=== PATIENT | female | born 1940 | race Caucasian/White ===

== ENCOUNTER 2017-10-14 09:50 | Emergency (ER) | payer MEDICARE ==
[2017-10-14 10:25] LABS: #Eosinphils 0.1 thou/uL (0.0-0.7); #Lymphocytes 1.4 thou/uL (1.20-3.40); #Monocytes 0.5 thou/uL (0.11-0.59); #Neutrophils 5.7 thou/uL (1.40-6.50); %Basophils 0.6 % (0.0-1.0); %Eosinophils 1.8 % (0.0-10.0); %Lymphocytes 18.1 % (21.0-51.0); %Monocytes 6.3 % (0.0-10.0); %Neutrophils 73.2 % (42.0-75.0); Hemoglobin 13.9 g/dL (12.0-16.0); Mean Corpuscular HGB CONC 31.9 g/dL (32.0-36.0); Mean Corpuscular Hemoglobin 28.8 pg (27.0-31.0); Mean Corpuscular Volume 90.4 fl (81.0-99.0); Mean Platelet Volume 8.4 fL (7.4-10.4); Platelet Count 328 thou/uL (130-400); RBC Distribution Width 13.6 % (11.5-14.5); Red Blood Cell (RBC) Count 4.82 mill/uL (4.20-5.40); White Blood Cell (WBC) Count 7.7 thou/uL (4.8-10.8)
--- NOTE | 2017-10-14 10:30 | RAD ---
PORTABLE AP CHEST RADIOGRAPH: Date: 10-14-17 History: Altered mental status. Worsening confusion this morning. Headache. Comparison: None available. FINDINGS: Cardiac silhouette is magnified by projection. Pulmonary vasculature is within normal limits. There i s symmetrical biapical pleural thickening. Lungs are otherwise clear. Vascular calcification is seen in the aorta. There is bilateral acromioclavicular joint osteoarthritis with right glenohumeral osteo arthropathy. Degenerative changes are noted in the spine. IMPRESSION: No acute cardiopulmonary process. POS: [facility]
[2017-10-14 10:40] LABS: ALT (SGPT) 12 U/L (8-55); AST (SGOT) 21 U/L (5-34); Albumin 4.2 g/dL (3.4-4.8); Alkaline Phosphatase 76 U/L (40-150); Anion Gap 15 mmol/L (10-20); BUN (Urea Nitrogen) 18 mg/dL (9.8-20.1); Bilirubin, Total 0.4 mg/dL (0.2-1.2); CK (CPK) 41 U/L (29-168); Calc. Creatinine Clearance 0 mL/min (70-130); Calcium 10.1 mg/dL (7.8-10.44); Carbon Dioxide 25 mmol/L (23-31); Chloride 96 mmol/L (98-107); Estimated GFR-MDRD 69; Globulin 3.1 g/dL (2.4-3.5); Glucose 83 mg/dL (83-110); Protein, Total 7.3 g/dL (6.0-8.3); Sodium 132 mmol/L (136-145)
[2017-10-14 10:43] LABS: CKMB 1.6 ng/mL (0-6.6); Troponin I Less than 0.010 ng/mL (< 0.028)
--- NOTE | 2017-10-14 12:27 | CT ---
NONCONTRAST HEAD CT: Date: 10/14/17 HISTORY: Worsening confusion and headache x1 week. COMPARISON: None. TECHNIQUE: A noncontrast head CT is performed from the skull base to the skull vertex. FINDINGS: No parenchymal hemorrhage or extra-axial hematoma. No midline shift. Basilar cisterns are patent. Kp tricular system is greater than expected for overall degree of brain volume loss. Correlate for hydro cephalus. Chronic small vessel ischemic changes versus transependymal flow of CSF noted. Adequate aer ation of the sinuses and mastoid air cells. Calvarium is intact. IMPRESSION: Prominence of the ventricular system, worrisome for a hydrocephalus. Noncommunicating hydrocephalus i s suspected. Better interrogation with brain MRI is recommended. POS: [facility]
== END 2017-10-14 12:55 | disposition home or self-care (01) ==
LOC: ERS 09:50
DX: E11.649 Type 2 diabetes mellitus with hypoglycemia without coma (principal); E78.5 Hyperlipidemia, unspecified; I10 Essential (primary) hypertension; Z86.73 Personal history of transient ischemic attack (TIA), and cerebral infarction without residual deficits; Z87.891 Personal history of nicotine dependence; Z79.02 Long term (current) use of antithrombotics/antiplatelets; Z79.4 Long term (current) use of insulin; Z79.899 Other long term (current) drug therapy
CPT/HCPCS: 36415; 36416; 70450; 71045; 80053; 82553; 84484; 85025; 93005; 94760

== ENCOUNTER 2017-11-08 18:00 | Outpatient (CLI) | payer MEDICARE ==
--- NOTE | 2017-11-08 13:14 | MRI ---
MRI BRAIN WITHOUT CONTRAST: 11/08/2017 HISTORY: Ventriculomegaly. Altered mental status. COMPARISON: None. TECHNIQUE: Multiplanar, multisequence imaging of the brain is obtained without contrast. FINDINGS: The diffusion-weighted imaging demonstrates no evidence for acute infarction. The axial gradient ech o imaging demonstrates no evidence for intracranial hemorrhage. The imaged paranasal sinuses/mastoid air cells demonstrate normal signal intensity. Regional bone ma rrow signal intensity is within normal limits. There is degenerative change involving the atlantoaxi al interspace. The imaged paranasal sinuses/mastoid air cells are grossly unremarkable. Arterial flow voids at the axial level of the skull base appear grossly unremarkable on T2 weighted imaging. There is diffuse ventricular enlargement involving the third ventricle and lateral ventricles. The f ourth ventricle is mildly prominent as well. No evidence for a tectal mass. Axial gradient echo imaging demonstrates no evidence for intracranial hemorrhage. No evidence for ac dori infarction on diffusion weighted imaging. IMPRESSION: Ventricular enlargement, most prominently affecting the third ventricle and lateral ventricles. Ther e is no tactile mass or definite evidence for tectal mass or definite evidence for aqueductal stenosi s on this exam. These findings may represent normal pressure hydrocephalus. Clinical correlation is essential. No intracranial hemorrhage or evidence of acute infarction. POS: [facility]
== END 2017-11-08 18:01 | disposition home or self-care (01) ==
LOC: MRI 18:00
PROVIDERS: ATTEND Internal Medicine Geriatric Medicine
DX: G31.9 Degenerative disease of nervous system, unspecified (principal)
CPT/HCPCS: 70551

== ENCOUNTER 2018-02-21 10:11 | Outpatient (CLI) | payer MEDICARE | END 2018-02-21 10:12 | disposition home or self-care (01) | LOC: BICMAMMO 10:11 | PROVIDERS: ATTEND Internal Medicine Geriatric Medicine | DX: Z12.31 Encounter for screening mammogram for malignant neoplasm of breast (principal) | CPT/HCPCS: 77063; 77067 ==

== ENCOUNTER 2018-04-06 12:56 | Outpatient (CLI) | payer MEDICARE | END 2018-04-06 12:57 | disposition home or self-care (01) | LOC: MWLC DTY 12:56 | PROVIDERS: ATTEND Internal Medicine Geriatric Medicine | DX: E11.65 Type 2 diabetes mellitus with hyperglycemia (principal) | CPT/HCPCS: 97802 ==

== ENCOUNTER 2018-08-27 12:08 | Observation (INO) | payer MEDICARE ==
--- NOTE | 2018-08-27 14:21 | RAD ---
RIGHT HIP 2 VIEWS: HISTORY: Fall with injury to hip. FINDINGS: No evidence of fracture. Very mild degenerative change. IMPRESSION: No acute fracture. POS: [facility]
[2018-08-27] MEDS ORDERED: Fentanyl 100 MCG/2 ML VIAL ONE ×2 (14:54→18:40)
[2018-08-27 15:19] LABS: #Eosinphils 0.2 thou/uL (0.0-0.7); #Lymphocytes 1.1 thou/uL (1.20-3.40); #Monocytes 0.7 thou/uL (0.11-0.59); #Neutrophils 10.8 thou/uL (1.40-6.50); %Basophils 0.3 % (0.0-1.0); %Eosinophils 1.4 % (0.0-10.0); %Lymphocytes 8.7 % (21.0-51.0); %Monocytes 5.8 % (0.0-10.0); %Neutrophils 83.8 % (42.0-75.0); Hemoglobin 13.6 g/dL (12.0-16.0); Mean Corpuscular HGB CONC 33.5 g/dL (32.0-36.0); Mean Corpuscular Hemoglobin 29.4 pg (27.0-31.0); Mean Corpuscular Volume 87.7 fL (78.0-98.0); Mean Platelet Volume 9.2 fL (7.4-10.4); Platelet Count 286 thou/uL (130-400); RBC Distribution Width 13.8 % (11.5-14.5); Red Blood Cell (RBC) Count 4.63 mill/uL (4.20-5.40); White Blood Cell (WBC) Count 12.9 thou/uL (4.8-10.8)
[2018-08-27 15:27] LABS: Prothrombin Time 12.9 SEC (12.0-14.7)
--- NOTE | 2018-08-27 15:41 | RAD ---
PORTABLE UPRIGHT FRONTAL CHEST RADIOGRAPH: DTE: 08/27/2018. COMPARISON: 10/14/2017. HISTORY: Fall, trauma, pain, weakness. FINDINGS: There is atherosclerotic calcification of the aortic arch. There is mild increased linear interstitial density, stable. There is no pneumothorax, pleural fluid , focal consolidation, or alveolar edema. IMPRESSION: Stable appearance of the chest - no acute findings. POS: [facility]
--- NOTE | 2018-08-27 15:51 | RAD ---
FRONTAL RADIOGRAPH PELVIS: DATE: 08/27/2018. HISTORY: Injury, trauma, pain. FINDINGS: Pelvic ring appears intact. No widening of sacroiliac joints or pubic symphysis. Femoral heads proj ect normally over their respective acetabulum. IMPRESSION: No displaced fracture. POS: [facility]
[2018-08-27 15:54] LABS: ALT (SGPT) 11 U/L (8-55); AST (SGOT) 15 U/L (5-34); Albumin 3.9 g/dL (3.4-4.8); Alkaline Phosphatase 89 U/L (40-150); Anion Gap 18 mmol/L (10-20); BUN (Urea Nitrogen) 16 mg/dL (9.8-20.1); Bilirubin, Total 0.6 mg/dL (0.2-1.2); CK (CPK) 41 U/L (29-168); Calc. Creatinine Clearance 0 mL/min (70-130); Calcium 9.8 mg/dL (7.8-10.44); Carbon Dioxide 23 mmol/L (23-31); Chloride 95 mmol/L (98-107); Estimated GFR-MDRD 58; Glucose 262 mg/dL (83-110); Potassium 4.3 mmol/L (3.5-5.1); Protein, Total 6.9 g/dL (6.0-8.3); Sodium 132 mmol/L (136-145)
[2018-08-27 16:06] LABS: Bilirubin Negative (Negative); Blood, Urine Trace (Negative); Clarity CLOUDY (Clear); Glucose, Urine (Dipstick) >=1000 mg/dL (Negative); Leukocyte Large (Negative); Nitrite Positive (Negative); Protein, Urine (Dipstick) Negative (Neg-Trace)
[2018-08-27 16:11] LABS: Bacteria/HPF 4+ HPF (None Seen); Hyaline Casts/LPF 0-3 HYALINE CAST LPF (0-3 Hyaline); Pathc Cast-AUWi Flag 0.14 (0-2.49); Squamous Epithelial None Seen HPF (0-3)
[2018-08-27] MEDS ORDERED: cefTRIAXone\\ROCEPHIN 2 GM VIAL ONE (17:28)
[2018-08-27] MEDS ORDERED: Ondansetron PF 4 MG/2 ML Vial ONE (17:28)
[2018-08-28] MEDS ORDERED: Dextrose 5% in Water 1,000 ML IV PRN (09:37)
[2018-08-28] MEDS ORDERED: Dextrose 50% Abboject 50 ML SYRINGE IVP PRN (09:37)
[2018-08-28] MEDS ORDERED: Oxybutynin ER 5 MG TAB PO SCH (09:45)
[2018-08-28] MEDS ORDERED: Citalopram 20 MG TAB PO SCH ×2 (09:45)
[2018-08-28] MEDS ORDERED: Clopidogrel Bisulfate 75 MG TAB PO SCH (09:45)
[2018-08-28] MEDS ORDERED: Aspirin 81 mg Enteric Coated Tablet PO SCH (09:45)
[2018-08-28] MEDS ORDERED: Insulin Glargine 36 UNITS in Pre-Filled Syringe 1 EACH SC SCH (09:45)
--- NOTE | 2018-08-28 10:21 | RAD ---
LUMBAR SPINE 3 VIEWS: HISTORY: Fall with pain and injury to low back. FINDINGS: The lumbar vertebrae maintain height. No evidence of acute compression injury. Moderate degenerativ e changes are noted. There is a mild anterolisthesis at L3-4. Here is loss of disk space at L4-5 an d L5-S1. Anterior osteophytes and facet hypertrophy noted. IMPRESSION: Degenerative changes of lumbar spine. No evidence of acute fracture or compression. POS: [facility]
[2018-08-28] MEDS: Sodium Chloride 0.9% 1,000 ML IV SCH (10:37)
[2018-08-28] MEDS ORDERED: HumaLOG 300 UNITS/3 ML VIAL ONE (10:42)
[2018-08-28] MEDS: HumaLOG 300 UNITS/3 ML VIAL SC PRN ×2 (10:43→16:58)
[2018-08-28] MEDS ORDERED: Enoxaparin Sodium 40 MG/0.4 ML SYRINGE ONE (11:26)
[2018-08-28] MEDS: Losartan/Hydrochlorothiazide 100 mg/25 mg Tablet PO SCH (11:33)
[2018-08-28] MEDS: metFORMIN 500 MG TAB PO SCH (11:35)
[2018-08-28] MEDS: Enoxaparin Sodium 40 MG/0.4 ML SYRINGE SC SCH ×2 (11:36→11:37)
--- NOTE | 2018-08-28 12:04 | HP ---
PRIMARY CARE PROVIDER: Fatoumata George MD CHIEF COMPLAINT: Fall. HISTORY OF PRESENT ILLNESS: Ms. Rubio is a pleasant 78-year-old lady, who was seen at [facility] on 08/28/2018. She lives at [facility], with assisted living. She uses a walker to ambulate. History was provided by her. Collateral history was obtained from daughter by the bedside and review of medical records. Ms. Rubio was treated by physical therapy several months ago, at which time she was discharged from their service because of noncompliance. She reportedly had a fall 3 weeks ago. Yesterday, she had another fall. She was sitting in her living room and got up to go to the bathroom. She denies any head trauma. She denies any lightheadedness. She reports that she does not remember how she fell. She reports soreness over her right upper back as well as lower back in the midline. She denies having any palpitations or chest pain prior to the fall. She is unsure if she had any lightheadedness. She also has a history of recurrent urinary tract infections. She was treated with Rocephin intramuscularly on 08/15/2018, 08/16/2018 and 08/17/2018. She does report on and of dysuria. She reports suprapubic discomfort. She describes it as sharp, 8/10, nonradiating, no aggravating or relieving factors. PAST MEDICAL HISTORY: Significant for diabetes mellitus type 2, being treated with insulin; dyslipidemia; hypertension, TIA x2. PAST SURGICAL HISTORY: Hysterectomy and right knee surgery. SOCIAL HISTORY: The patient denies tobacco use, alcohol use, or recreational drug use. CODE STATUS: I discussed her code status. She is DNAR. FAMILY HISTORY: Significant for myocardial infarction and cerebrovascular accident in her father. REVIEW OF SYSTEMS: All other systems reviewed and found to be negative. ALLERGIES: NO KNOWN DRUG ALLERGIES. CURRENT MEDICATIONS: 1. Plavix 75 mg daily. 2. Losartan/hydrochlorothiazide 100/25 mg daily. 3. Metformin 1000 mg 2 times a day. 4. Simvastatin 20 mg daily. 5. Levemir 36 units daily. 6. Metoprolol succinate 50 mg daily. 7. Aspirin 81 mg daily. 8. Citalopram 20 mg daily. 9. Oxybutynin 10 mg daily. PHYSICAL EXAMINATION: GENERAL: On examination, Ms. Rubio is awake and alert, not in acute distress. VITAL SIGNS: Blood pressure is 135/64, pulse 65, respiratory rate 16, and oxygen saturation 98% on room air. She is afebrile. EYES: No scleral icterus. No conjunctival pallor. ENT: Moist mucosal membranes. No oropharyngeal erythema or exudates. NECK: Supple, nontender, trachea is midline. RESPIRATORY: Accessory muscles of breathing are not active. Chest wall movements are symmetric bilaterally. Lungs are clear to auscultation without wheeze, rhonchi, or crepitations. CARDIOVASCULAR: S1 and S2 are heard, regular. Peripheral pulses palpable. No carotid bruit. No pericardial rub. ABDOMEN: Soft, nontender, bowel sounds are heard, no hepatomegaly, no splenomegaly. NEUROLOGIC: Cranial nerves 2 through 12 intact, deep tendon reflexes 2+. MUSCULOSKELETAL: Power is 5/5 in all 4 extremities. She has tenderness over the right upper back as well as over the lumbar spine. SKIN: Bruise over the right upper back. LYMPHATIC: No cervical lymphadenopathy. PSYCHIATRIC: Normal mood, normal affect, the patient is oriented to person and place, not to time. LABORATORY DATA: Ms. Rubio's labs and investigations were reviewed. I reviewed her electrocardiogram, which shows normal sinus rhythm, no ST changes to suggest an acute coronary syndrome. I also reviewed her chest x-ray, which does not show any pulmonary infiltrates. X-rays of the right hip did not show any acute fracture. X-rays of the pelvis did not show any displaced fracture. She has leukocytosis with 12,900 white cells, of which 83.8% are neutrophils, normal hemoglobin, normal platelet count. INR 1.0. Decreased sodium of 132, normal potassium, elevated glucose of 262, normal creatinine. Unremarkable liver profile. Normal troponin I and urinalysis positive for leukocyte esterase and nitrite. ASSESSMENT AND PLAN: Ms. Rubio is a pleasant 78-year-old lady, who was seen at [facility] on 08/28/2018. Her problem list includes: 1. Urinary tract infection: Ms. Ms. Rubio has received a dose of ceftriaxone for urinary tract infection. Preliminary urine cultures show presumptive Pseudomonas. Will change antibiotic to cefepime. We will follow urine cultures and adjust antibiotics accordingly. 2. Falls: Ms. Ms. Rubio is presenting with frequent falls. She was screened for rehab yesterday in the emergency room, but could not go to rehab because there were no rehab beds available. When rehab bed becomes available, she will be discharged to inpatient rehab. We will request inpatient rehab to follow up on urine cultures and adjust antibiotics accordingly. 3. Diabetes mellitus type 2: The patient's blood sugars were high in the emergency room. We will resume her insulin and start Accu-Cheks and insulin sliding scale. 4. Mild depression: Ms. Rubio was reportedly not coming out of her room for the last week or so. Her citalopram dose was increased from 10 mg to 20 mg daily less than 2 weeks ago. Further adjustments to her antidepressants to be made by her primary care provider. 5. Hypertension: We will resume home medications, monitor vital signs and titrate antihypertensives as needed. 6. Dyslipidemia: We will continue her statin. Many thanks for allowing me to participate in your patient's care. Please feel free to contact me with any questions or concerns. LEVEL OF RISK: High. LEVEL OF COMPLEXITY: High. Job ID: [id number] [facility] NETWORKD[facility]
[2018-08-28 12:51] VITALS: BMI 29.0
[2018-08-28] MEDS: Cefepime 1 GM in Sodium Chloride 0.9% 100 ML IVPB SCH (13:14)
[2018-08-28] MEDS: Ondansetron PF 4 MG/2 ML Vial IVP PRN (14:13)
[2018-08-28] MEDS: Acetaminophen 325 MG TAB PO PRN (14:13)
[2018-08-28] MEDS ORDERED: metFORMIN 500 MG TAB PO SCH (17:00)
[2018-08-28] MEDS ORDERED: Atorvastatin Calcium 10 MG TAB PO SCH (21:00)
[2018-08-29] MEDS: Sodium Chloride 0.9% 1,000 ML IV SCH ×2 (00:20→14:10)
[2018-08-29] MEDS: Cefepime 1 GM in Sodium Chloride 0.9% 100 ML IVPB SCH ×2 (00:20→12:08)
[2018-08-29] MEDS: Acetaminophen 325 MG TAB PO PRN ×2 (03:46→17:03)
[2018-08-29 04:48] LABS: #Eosinphils 0.3 thou/uL (0.0-0.7); #Lymphocytes 1.4 thou/uL (1.20-3.40); #Monocytes 0.6 thou/uL (0.11-0.59); %Basophils 0.6 % (0.0-1.0); %Lymphocytes 16.6 % (21.0-51.0); %Monocytes 7.6 % (0.0-10.0); %Neutrophils 71.3 % (42.0-75.0); Hemoglobin 11.9 g/dL (12.0-16.0); Mean Corpuscular HGB CONC 33.8 g/dL (32.0-36.0); Mean Corpuscular Hemoglobin 29.5 pg (27.0-31.0); Mean Corpuscular Volume 87.4 fL (78.0-98.0); Platelet Count 242 thou/uL (130-400); RBC Distribution Width 13.5 % (11.5-14.5); Red Blood Cell (RBC) Count 4.01 mill/uL (4.20-5.40); White Blood Cell (WBC) Count 8.4 thou/uL (4.8-10.8)
[2018-08-29 05:12] LABS: Anion Gap 14 mmol/L (10-20); BUN (Urea Nitrogen) 9 mg/dL (9.8-20.1); Calc. Creatinine Clearance 67 mL/min (70-130); Calcium 9.2 mg/dL (7.8-10.44); Carbon Dioxide 25 mmol/L (23-31); Chloride 98 mmol/L (98-107); Estimated GFR-MDRD 68; Glucose 147 mg/dL (83-110); Potassium 3.5 mmol/L (3.5-5.1); Sodium 133 mmol/L (136-145)
[2018-08-29] MEDS: metFORMIN 500 MG TAB PO SCH ×2 (08:50→17:02)
[2018-08-29] MEDS ORDERED: Oxybutynin ER 5 MG TAB PO SCH (09:00)
[2018-08-29] MEDS: Ondansetron PF 4 MG/2 ML Vial IVP PRN (09:00)
[2018-08-29] MEDS ORDERED: Insulin Glargine 36 UNITS in Pre-Filled Syringe 1 EACH SC SCH (09:00)
[2018-08-29] MEDS ORDERED: Clopidogrel Bisulfate 75 MG TAB PO SCH (09:00)
[2018-08-29] MEDS ORDERED: Aspirin 81 mg Enteric Coated Tablet PO SCH (09:00)
[2018-08-29] MEDS ORDERED: Citalopram 10 MG TAB PO SCH (09:00)
[2018-08-29] MEDS ORDERED: Citalopram 20 MG TAB PO SCH (09:00)
[2018-08-29] MEDS: Losartan/Hydrochlorothiazide 100 mg/25 mg Tablet PO SCH (09:51)
[2018-08-29] MEDS: HumaLOG 300 UNITS/3 ML VIAL SC PRN (12:08)
[2018-08-29 15:38] VITALS: BP 144/67; TEMP 98.1
--- NOTE | 2018-08-30 11:46 | DIS ---
DATE OF ADMISSION: 08/27/2018 DATE OF DISCHARGE: 08/29/2018 CONSULTING PHYSICIAN: None. DISCHARGE DIAGNOSES: 1. Urinary tract infection, culture positive for Pseudomonas. 2. Falls. 3. Diabetes mellitus, type 2. 4. Hypertension. 5. Dyslipidemia. 6. Mild depression. HOSPITAL COURSE AND REVIEW OF SYSTEMS: Ms. Rubio is a pleasant 78-year-old woman, who presented to the ED on August 27, 2018, after having a fall. She came from an assisted living ([facility]) and reported to usually ambulate with a walker. She has a history of frequent falls and has been undergoing physical therapy but discharged due to noncompliance. The patient presented complaining of discomfort over the right upper back and mid lower back. She denied having any associated symptoms prior to falling. She also denied having any head trauma. The patient has a history of urinary tract infections treated with Rocephin on 08/15, 08/16, and 08/17. The patient upon presentation complained of intermittent dysuria and suprapubic discomfort. She denied any hematuria. No fevers reported either. Urinalysis was done along with urine culture that was positive for Pseudomonas. The patient was therefore started on cefepime. She did undergo multiple x-rays to evaluate for any fractures, given her fall. These included a hip x-ray that showed no acute fractures. Pelvic x-ray showed no fracture. Chest x-ray demonstrated no acute findings. An x-ray of the L-spine was also done, which was also negative for any acute fractures. She was noted to have degenerative changes of the lumbar spine. There was mild anterolisthesis at L3 and L4. Loss of disk space between L4-L5 and L5-S1. Laboratory studies are notable for white count of 12.9 upon initial presentation; however, her white count normalized during the rest of her stay and was 7.7 on the day of discharge. Full blood count otherwise normal. She was also noted to be hyponatremic with a sodium of 133, which appears to be chronic for her. Electrolytes otherwise within normal range throughout her stay. Renal function normal. The patient underwent PT and OT eval and was again recommended to have rehab. She did have a bit of await in order to be discharged to an acute rehab facility. However, they were able to obtain a bed and therefore she was discharged without any other difficulties. On day of discharge, the patient was feeling well and without complaints. She is eating and drinking without any nausea or vomiting. Denied any abdominal pain. Denied any changes of the bowels or further urinary symptoms. She remained afebrile. No chest pain or shortness of breath. No cough or hemoptysis. No further issues with back pain. Denied any lower leg swelling or calf pain. PHYSICAL EXAMINATION: GENERAL: The patient appeared well developed, well nourished, in no acute distress. Very pleasant and in good spirits. VITAL SIGNS: Temperature 98.1, pulse 69, respirations 16, O2 saturations 93% on room air, and blood pressure 144/67. HEENT: Normocephalic and atraumatic. Pupils are equal, round, reactive to light. Sclerae are anicteric. Oropharynx is clear. NECK: Supple without lymphadenopathy. No neck tenderness. Full range of motion. LUNGS: Clear to auscultation bilaterally without wheezes, rales, or rhonchi. CARDIAC: Regular rate and rhythm without audible murmurs, rubs, or gallops. ABDOMEN: Soft, nontender, nondistended. Normoactive bowel sounds present. EXTREMITIES: No clubbing, cyanosis, or edema. NEUROLOGIC: Alert and oriented. No focal deficits. LABORATORY DATA: On day of discharge, full blood count was within normal range. Sodium 132, potassium 3.7, BUN 10, creatinine 0.77, EGFR 72. LFTs unremarkable. IMAGING DATA: As mentioned in the hospital course. PROCEDURES: None. DISCHARGE MEDICATIONS: The patient was recommended to continue the following in addition to her regular home medications; 1. Acetaminophen 650 mg p.o. q.4 hours p.r.n. for pain. 2. Cipro 500 mg p.o. q.12 hours for 7 days. 3. Compazine 10 mg p.o. q.6 hours as needed for nausea and vomiting. CONDITION AT DISCHARGE: Stable. ACTIVITY: As per PT/OT, fall precaution. DIET: Heart healthy/diabetic diet. DISPOSITION: The patient discharged to acute rehab. The patient's case was discussed with Dr. Lee, who agrees with plan of care as described above. Job ID: [id number]
== END 2018-08-29 17:10 ==
LOC: ERS 12:08 → ERHOLD 17:59 → 2SW 08-28 12:19
PROVIDERS: ADMIT Family Medicine; ATTEND Family Medicine
DX: N39.0 Urinary tract infection, site not specified (principal); B96.5 Pseudomonas (aeruginosa) (mallei) (pseudomallei) as the cause of diseases classified elsewhere; E11.9 Type 2 diabetes mellitus without complications; F32.9 Major depressive disorder, single episode, unspecified; E78.5 Hyperlipidemia, unspecified; I10 Essential (primary) hypertension; M47.816 Spondylosis without myelopathy or radiculopathy, lumbar region; I70.0 Atherosclerosis of aorta; Z91.81 History of falling; Z86.73 Personal history of transient ischemic attack (TIA), and cerebral infarction without residual deficits; Z79.02 Long term (current) use of antithrombotics/antiplatelets; Z79.4 Long term (current) use of insulin; Z79.82 Long term (current) use of aspirin; Z79.899 Other long term (current) drug therapy; Z66 Do not resuscitate; W19.XXXA Unspecified fall, initial encounter
CPT/HCPCS: 71045; 72100; 72170; 73502; 80048; 80053; 82550; 82962 ×2; 84484; 85025 ×2; 85610; 87040; 87077; 87086; 87184; 87186; 93005; 96361 ×2; 96365; 96366; 96367; 96372; 96375 ×2; 96376 ×2; 97530; 99285; G0378 ×2; 36415; 36416; 81003; 81015; J0692; J0696; J1650; J2405; J3010; J7050; J7070